=== PATIENT | female | born 1960 | race Caucasian/White ===

== ENCOUNTER → 2017-06-26 | Outpatient (CLI) | payer BC ==
--- NOTE | 2017-06-26 16:14 | CT ---
EXAMINATION TYPE: CT angio chest DATE OF EXAM: 06/26/2017 COMPARISON: NONE HISTORY: SOB, VAIBHAV CT DLP: 591.8 mGycm Automated exposure control for dose reduction was used. CONTRAST: CTA scan of the thorax is performed with IV Contrast, patient injected with 70 mL of Isovue 370, pulm onary embolism protocol. MIP images are created and reviewed. 3D reconstructed images are created o n an independent workstation and reviewed. FINDINGS: LUNGS: The lungs are remarkable for some minimal scarring right middle lobe, there is no concerning parenchymal mass or nodule identified. There is no pleural effusion or pneumothorax seen. The trac heobronchial tree is patent. AORTA: No additional significant abnormality is seen. MEDIASTINUM: There is satisfactory enhancement of the pulmonary artery and its branches, there is no CT evidence for pulmonary embolism. There are borderline 1 cm mediastinal lymph nodes. No hilar cecily opathy No pericardial effusion is seen. OTHER: There is a small hiatal hernia. Patient is post cholecystectomy. IMPRESSION: NO EVIDENT PULMONARY EMBOLISM. BORDERLINE LYMPH NODES IN THE CHEST, CONSIDER FOLLOW-UP INDICATED.
== END | disposition home or self-care (01) ==
LOC: RADCTMAIN 13:19
PROVIDERS: ATTEND Family Medicine
DX: R06.00 Dyspnea, unspecified (principal)
CPT/HCPCS: 82565; 84520; 71275; 36415; Q9967

== ENCOUNTER 2017-06-28 07:35 | Observation (INO) | payer BC ==
[2017-06-28] MEDS ORDERED: SODIUM CHLORIDE 0.9% 500 ML IV STA (08:04)
--- NOTE | 2017-06-28 08:07 | ED ---
General Adult HPI - General Chief complaint: Shortness of Breath Stated complaint: Difficulty Breathing Time Seen by Provider: 06/28/17 07:35 Source: patient, RN notes reviewed Mode of arrival: ambulatory Limitations: no limitations - History of Present Illness Initial comments: This a 56-year-old female presents emergency Department with a past medical history significant for high blood pressure. Patient states about 2 weeks ago she had an upper respiratory infection and it developed into a cough and on Sunday she started becoming short of breath. Patient states she saw her primary medical care doctor he thought maybe she had a pulmonary embolus and had a CAT scan that was negative. Patient states the shortness of breath continues. Patient states he was sitting and resting she feels mildly short of breath. Patient states exertion definitely makes it worse. Patient denies any chest pain or pressure. Patient denies any palpitations. Patient denies any calf pain patient denies any peripheral edema. Patient denies any back pain. Patient denies headache patient denies numbness weakness. Patient denies lightheadedness dizziness or near syncopal episode. Patient has no pain anywhere her main complaint is just the persistent shortness of breath. she was sent in by her primary medical care doctor to have her heart checked out. - Related Data Home Medications Medication Instructions Recorded Confirmed Atorvastatin Calcium [Lipitor] 20 mg PO PC-SUPPER 06/28/17 06/28/17 Cholecalciferol (Vitamin D3) 2,000 unit PO DAILY 06/28/17 06/28/17 [Vitamin D3] Irbesartan/Hydrochlorothiazide 1 tab PO DAILY 06/28/17 06/28/17 [Irbesartan-Hctz 300-12.5 mg Tb] predniSONE See Taper PO DIRECTED 06/28/17 06/28/17 Allergies Allergy/AdvReac Type Severity Reaction Status Date / Time No Known Allergies Allergy Verified 06/28/17 07:46 Review of Systems ROS Statement: Those systems with pertinent positive or pertinent negative responses have been documented in the HPI. ROS Other: All systems not noted in ROS Statement are negative. Past Medical History Past Medical History: Hyperlipidemia, Hypertension History of Any Multi-Drug Resistant Organisms: None Reported Past Surgical History: Cholecystectomy, Tubal Ligation Past Psychological History: No Psychological Hx Reported Smoking Status: Never smoker Past Alcohol Use History: Rare Past Drug Use History: None Reported - Past Family History Mother Family Medical History: Cancer, Hyperlipidemia, Hypertension Additional Family Medical History / Comment(s): Mother of small cell cancer at the age of 75yrs. Pt does not know where cancer was located. Father History Unknown: Yes General Exam - General Exam Comments Initial Comments: GENERAL: Patient is well-developed and well-nourished. Patient is nontoxic and well- hydrated and is in no acute distress. ENT: Neck is soft and supple. No significant lymphadenopathy is noted. Oropharynx is clear. Moist mucous membranes. Neck has full range of motion without eliciting any pain. EYES: The sclera were anicteric and conjunctiva were pink and moist. Extraocular movements were intact and pupils were equal round and reactive to light. Eyelids were unremarkable. PULMONARY: Unlabored respirations. Good breath sounds bilaterally. No audible rales rhonchi or wheezing was noted. CARDIOVASCULAR: There is a regular rate and rhythm without any murmurs gallops or rubs. ABDOMEN: Soft and nontender with normal bowel sounds. No palpable organomegaly was noted. There is no palpable pulsatile mass. SKIN: Skin is clear with no lesions or rashes and otherwise unremarkable. NEUROLOGIC: Patient is alert and oriented x3. Cranial nerves II through XII are grossly intact. Motor and sensory are also intact. Normal speech, volume and content. Symmetrical smile. MUSCULOSKELETAL: Normal extremities with adequate strength and full range of motion. No edema tenderness and no calf tenderness LYMPHATICS: No significant lymphadenopathy is noted PSYCHIATRIC: Normal psychiatric evaluation. Normal interpersonal interactions appears functionally intact in deals appropriately with others. No signs of depression. No signs of anxiety. Limitations: no limitations Course Vital Signs 06/28/17 06/28/17 06/28/17 07:37 08:26 10:57 Temperature 98.0 F 98 F Pulse Rate 64 54 L 52 L Respiratory 20 18 18 Rate Blood Pressure 122/59 120/67 124/60 O2 Sat by Pulse 96 98 97 Oximetry Medical Decision Making - Medical Decision Making EKG shows sinus bradycardia 50 bpm PA interval 160 QRS is 74 Q-T intervals 426 QTC is 418. Patient's EKG shows no ST segment elevation or depression or T- wave abnormalities noted. Chest x-ray showed no acute abnormality. I spoke with Dr. Rayo he agreed to admit the patient admitted the patient I consult the cardiology - Lab Data Result diagrams: 06/28/17 08:30 06/28/17 08:30 Lab Results 06/28/17 06/28/17 06/28/17 Range/Units 08:30 08:30 08:30 WBC 4.1 (3.8-10.6) k/uL RBC 5.16 (3.80-5.40) m/uL Hgb 15.3 (11.4-16.0) gm/dL Hct 43.9 (34.0-46.0) % MCV 85.1 (80.0-100.0) fL MCH 29.8 (25.0-35.0) pg MCHC 35.0 (31.0-37.0) g/dL RDW 12.9 (11.5-15.5) % Plt Count 298 (150-450) k/uL Neutrophils % (Manual) 78 % Lymphocytes % (Manual) 20 % Monocytes % (Manual) 2 % Neutrophils # (Manual) 3.20 (1.3-7.7) k/uL Lymphocytes # (Manual) 0.82 L (1.0-4.8) k/uL Monocytes # (Manual) 0.08 (0-1.0) k/uL Nucleated RBCs 0 (0-0) /100 WBC Manual Slide Review Performed RBC Morphology Normal PT (9.0-12.0) sec INR (<1.2) APTT (22.0-30.0) sec Sodium 139 (137-145) mmol/L Potassium 3.7 (3.5-5.1) mmol/L Chloride 99 (98-107) mmol/L Carbon Dioxide 25 (22-30) mmol/L Anion Gap 15 mmol/L BUN 15 (7-17) mg/dL Creatinine 0.69 (0.52-1.04) mg/dL Est GFR (CKD-EPI)AfAm >90 (>60 ml/min/1.73 sqM) Est GFR (CKD-EPI)NonAf >90 (>60 ml/min/1.73 sqM) Glucose 130 H (74-99) mg/dL Calcium 9.4 (8.4-10.2) mg/dL Magnesium 2.0 (1.6-2.3) mg/dL Total Bilirubin 0.8 (0.2-1.3) mg/dL AST 28 (14-36) U/L ALT 35 (9-52) U/L Alkaline Phosphatase 79 (38-126) U/L Total Creatine Kinase 102 (30-135) U/L CK-MB (CK-2) 0.6 (0.0-2.4) ng/mL CK-MB (CK-2) Rel Index 0.6 Troponin I <0.012 (0.000-0.034) ng/mL NT-Pro-B Natriuret Pep pg/mL Total Protein 7.2 (6.3-8.2) g/dL Albumin 4.2 (3.5-5.0) g/dL Triglycerides (<150) mg/dL Cholesterol (<200) mg/dL LDL Cholesterol, Calc (0-99) mg/dL HDL Cholesterol (40-60) mg/dL 06/28/17 06/28/17 06/28/17 Range/Units 08:30 08:30 08:30 WBC (3.8-10.6) k/uL RBC (3.80-5.40) m/uL Hgb (11.4-16.0) gm/dL Hct (34.0-46.0) % MCV (80.0-100.0) fL MCH (25.0-35.0) pg MCHC (31.0-37.0) g/dL RDW (11.5-15.5) % Plt Count (150-450) k/uL Neutrophils % (Manual) % Lymphocytes % (Manual) % Monocytes % (Manual) % Neutrophils # (Manual) (1.3-7.7) k/uL Lymphocytes # (Manual) (1.0-4.8) k/uL Monocytes # (Manual) (0-1.0) k/uL Nucleated RBCs (0-0) /100 WBC Manual Slide Review RBC Morphology PT 9.7 (9.0-12.0) sec INR 1.0 (<1.2) APTT 22.3 (22.0-30.0) sec Sodium (137-145) mmol/L Potassium (3.5-5.1) mmol/L Chloride (98-107) mmol/L Carbon Dioxide (22-30) mmol/L Anion Gap mmol/L BUN (7-17) mg/dL Creatinine (0.52-1.04) mg/dL Est GFR (CKD-EPI)AfAm (>60 ml/min/1.73 sqM) Est GFR (CKD-EPI)NonAf (>60 ml/min/1.73 sqM) Glucose (74-99) mg/dL Calcium (8.4-10.2) mg/dL Magnesium (1.6-2.3) mg/dL Total Bilirubin (0.2-1.3) mg/dL AST (14-36) U/L ALT (9-52) U/L Alkaline Phosphatase (38-126) U/L Total Creatine Kinase (30-135) U/L CK-MB (CK-2) (0.0-2.4) ng/mL CK-MB (CK-2) Rel Index Troponin I (0.000-0.034) ng/mL NT-Pro-B Natriuret Pep 156 pg/mL Total Protein (6.3-8.2) g/dL Albumin (3.5-5.0) g/dL Triglycerides 124 (<150) mg/dL Cholesterol 150 (<200) mg/dL LDL Cholesterol, Calc 93 (0-99) mg/dL HDL Cholesterol 32 L (40-60) mg/dL Disposition Clinical Impression: Dyspnea on exertion Disposition: ADMITTED IP TO THIS HOSP Is patient prescribed a controlled substance at d/c from ED?: No Time of Disposition: 10:41
[2017-06-28 08:57] LABS: Partial Thromboplastin Time 22.3 sec (22.0-30.0); Prothrombin Time 9.7 sec (9.0-12.0)
[2017-06-28 08:58] LABS: HCT 43.9 % (34.0-46.0); HGB 15.3 gm/dL (11.4-16.0); MCH 29.8 pg (25.0-35.0); MCV 85.1 fL (80.0-100.0); Mean Platelet Volume 7.1; Platelet Count 298 k/uL (150-450); RBC 5.16 m/uL (3.80-5.40); RDW 12.9 % (11.5-15.5); WBC 4.1 k/uL (3.8-10.6)
[2017-06-28 09:01] LABS: ALT 35 U/L (9-52); AST 28 U/L (14-36); Albumin 4.2 g/dL (3.5-5.0); Alkaline Phosphatase 79 U/L (38-126); Anion Gap 15 mmol/L; Blood Urea Nitrogen 15 mg/dL (7-17); Calcium 9.4 mg/dL (8.4-10.2); Carbon Dioxide 25 mmol/L (22-30); Chloride 99 mmol/L (98-107); Glucose 130 mg/dL (74-99); Potassium 3.7 mmol/L (3.5-5.1); Sodium 139 mmol/L (137-145); Total Bilirubin 0.8 mg/dL (0.2-1.3); Total Protein 7.2 g/dL (6.3-8.2)
[2017-06-28 09:19] LABS: Creatine Kinase 102 U/L (30-135)
[2017-06-28 09:31] LABS: Creatine Kinase MB 0.6 ng/mL (0.0-2.4); Troponin I <0.012 ng/mL (0.000-0.034)
[2017-06-28 09:32] LABS: Lymphocytes # (M) 0.82 k/uL (1.0-4.8); Monocytes # (M) 0.08 k/uL (0-1.0); Neutrophils % (M) 78 %; Nucleated Red Blood Cells 0 /100 WBC (0-0); Total Cells Counted 100
--- NOTE | 2017-06-28 09:32 | XR ---
EXAMINATION TYPE: XR chest 2V DATE OF EXAM: 06/28/2017 COMPARISON: CT angiogram 06/26/2017 HISTORY: Dyspnea TECHNIQUE: Frontal and lateral views of the chest are obtained. FINDINGS: Patient is rotated. There are overlying cardiac leads. Surgical clips are present in the ri ght upper quadrant. There is no focal air space opacity, pleural effusion, or pneumothorax seen. The cardiac silhouette size is within normal limits. The osseous structures are intact. IMPRESSION: No acute cardiopulmonary process.
[2017-06-28] MEDS ORDERED: NITROGLYCERIN SL TABS 0.4 MG TAB SUBLINGUAL PRN (10:42)
[2017-06-28 13:39] VITALS: BMI 47.9
--- NOTE | 2017-06-28 14:48 | P.CRDCN ---
History of Present Illness Consult date: 06/28/17 History of present illness: Mrs. Lenz is a pleasant 56-year-old female past medical history significant for hypertension, hyperlipidemia and morbid obesity. She denies history of coronary artery disease and has never seen a finish off operator for any reason. We have been asked to see her in consultation for chest pain and shortness of breath. She states she has been struggling with an upper respiratory infection over the previous 2 weeks with cough, congestion, shortness of breath and drainage. She saw her PCP who ordered a CT of her chest to rule out PE which was negative. She was placed on antibiotics as well as a prednisone taper. Her cough and congestion have subsided but the shortness of breath has persisted. It is evident even at rest but worse with exertion. She denies any symptoms of specific chest pain, arm pain, neck/back or jaw pain. Denies palpitations, dizziness, nausea, vomiting or diaphoresis. She also denies PND or orthopnea. EKG reveals sinus bradycardia heart rate 58 with non-specific abnormalities inferiorly with no acute ST or T-wave abnormalities. Chest xray is negative for an acute cardiopulmonary process. Laboratory data reviewed, hemoglobin 15.3, platelets 298, sodium 139, potassium 3.7, magnesium 2.0, cardiac enzymes negative 1, proBNP 156. Current cardiac medications include Cardizem/HCTZ 300/12.5 mg daily and atorvastatin [address] angiography was ordered last week was reviewed reveals no evidence of pulmonary embolism with borderline lymph nodes in the chest, follow-up recommended. As well as a small hiatal hernia. Review of Systems At the time of my exam: CONSTITUTIONAL: Denies fever. Denies chills. EYES: Denies blurred vision. Denies vision changes. Denies eye pain. EARS, NOSE, MOUTH & THROAT: Denies headache. Denies sore throat. Denies ear pain. CARDIOVASCULAR: Denies chest pain. Complains of shortness of breath. Denies orthopnea. Denies PND. Denies palpitations. RESPIRATORY: Denies cough. GASTROINTESTINAL: Denies abdominal pain. Denies diarrhea. Denies constipation. Denies nausea. Denies vomiting. MUSCULOSKELETAL: Denies myalgias. INTEGUMENTARY: Denies pruitis. Denies rash. NEUROLOGIC: Denies numbness. Denies tingling. Denies weakness. PSYCHIATRIC: Denies anxiety. Denies depression. ENDOCRINE: Denies fatigue. Denies weight change. Denies polydipsia. Denies polyurina. GENITOURINARY: Denies burning, hematuria or urgency with micturation. HEMATOLOGIC: Denies history of anemia. Denies bleeding. Past Medical History Past Medical History: Hyperlipidemia, Hypertension History of Any Multi-Drug Resistant Organisms: None Reported Past Surgical History: Cholecystectomy, Tubal Ligation Past Anesthesia/Blood Transfusion Reactions: No Reported Reaction Smoking Status: Never smoker - Past Family History Mother Family Medical History: Cancer, Hyperlipidemia, Hypertension Additional Family Medical History / Comment(s): Mother of small cell cancer at the age of 75yrs. Pt does not know where cancer was located. Father History Unknown: Yes Medications and Allergies Home Medications Medication Instructions Recorded Confirmed Type Atorvastatin Calcium [Lipitor] 20 mg PO PC-SUPPER 06/28/17 06/28/17 History Cholecalciferol (Vitamin D3) 2,000 unit PO DAILY 06/28/17 06/28/17 History [Vitamin D3] Irbesartan/Hydrochlorothiazide 1 tab PO DAILY 06/28/17 06/28/17 History [Irbesartan-Hctz 300-12.5 mg Tb] predniSONE See Taper PO DIRECTED 06/28/17 06/28/17 History Allergies Allergy/AdvReac Type Severity Reaction Status Date / Time No Known Allergies Allergy Verified 06/28/17 07:46 Physical Exam Vitals: Vital Signs Temp Pulse Pulse Resp BP BP Pulse Ox 06/28/17 12:38 98 06/28/17 11:05 97.6 F 51 L 16 129/60 99 06/28/17 10:57 98 F 52 L 18 124/60 97 06/28/17 08:26 54 L 18 120/67 98 06/28/17 07:37 98.0 F 64 20 122/59 96 Intake and Output 06/27/17 06/28/17 06/28/17 22:59 06:59 14:59 Other: Voiding Method Toilet # Voids 1 Weight 126.6 kg Blood pressure 129/68 heart rate 51 afebrile maintaining oxygen saturation on nasal cannula 2 L GENERAL: This is a 56-year-old occasion female in no apparent distress at the time of my examination. Morbidly obese. HEENT: Head is atraumatic, normocephalic. Pupils are equal, round. Sclerae anicteric. Conjunctivae are clear. Mucous membranes of the mouth are moist. Neck is supple. There is no jugular venous distention. No carotid bruit is heard. LUNGS: Clear to auscultation no wheezes, rales or rhonchi. No chest wall tenderness is noted on palpation or with deep breathing. HEART: Regular rate and rhythm without murmurs, rubs or gallops. S1 and S2 heard. ABDOMEN: Soft, nontender. Bowel sounds are heard. No organomegaly noted. EXTREMITIES: No evidence of peripheral edema and no calf tenderness noted. VASCULAR: Radial and dorsalis pedis pulses palpated, no evidence of clubbing. NEUROLOGIC: Patient is awake, alert and oriented x3. Results 06/28/17 08:30 06/28/17 08:30 Cardiac Enzymes 06/28/17 06/28/17 Range/Units 08:30 08:30 AST 28 (14-36) U/L CK-MB (CK-2) 0.6 (0.0-2.4) ng/mL Troponin I <0.012 (0.000-0.034) ng/mL Coagulation 06/28/17 Range/Units 08:30 PT 9.7 (9.0-12.0) sec APTT 22.3 (22.0-30.0) sec CBC 06/28/17 Range/Units 08:30 WBC 4.1 (3.8-10.6) k/uL RBC 5.16 (3.80-5.40) m/uL Hgb 15.3 (11.4-16.0) gm/dL Hct 43.9 (34.0-46.0) % Plt Count 298 (150-450) k/uL Comprehensive Metabolic Panel 06/28/17 Range/Units 08:30 Sodium 139 (137-145) mmol/L Potassium 3.7 (3.5-5.1) mmol/L Chloride 99 (98-107) mmol/L Carbon Dioxide 25 (22-30) mmol/L BUN 15 (7-17) mg/dL Creatinine 0.69 (0.52-1.04) mg/dL Glucose 130 H (74-99) mg/dL Calcium 9.4 (8.4-10.2) mg/dL AST 28 (14-36) U/L ALT 35 (9-52) U/L Alkaline Phosphatase 79 (38-126) U/L Total Protein 7.2 (6.3-8.2) g/dL Albumin 4.2 (3.5-5.0) g/dL Current Medications Generic Name Dose Route Start Last Admin Trade Name Freq PRN Reason Stop Dose Admin Aspirin 325 mg 06/29/17 09:00 Aspirin PO DAILY [facility] Atorvastatin Calcium 20 mg 06/28/17 18:30 Lipitor PO PC-SUPPER FARHAN Hydrochlorothiazide 12.5 mg 06/29/17 09:00 Hydrodiuril PO DAILY [facility] Losartan Potassium 100 mg 06/29/17 09:00 Cozaar PO DAILY FARHAN Nitroglycerin 0.4 mg 06/28/17 10:42 Nitrostat SUBLINGUAL Q5M PRN Chest Pain Intake and Output 06/27/17 06/28/17 06/28/17 22:59 06:59 14:59 Other: Voiding Method Toilet # Voids 1 Weight 126.6 kg Patient Weight 06/29/17 06:59 Weight 126.6 kg 06/28/17 08:30 06/28/17 08:30 Assessment and Plan Assessment: ASSESSMENT 1. Shortness of breath, may be an atypical presentation of acute coronary syndrome. 2. Hypertension, controlled 3. Hyperlipidemia on atorvastatin 4. Morbid obesity PLAN Continue to obtain serial cardiac enzymes to rule out an acute coronary event. Check lipid panel. Obtain 2D echocardiogram and doppler study to assess cardiac structure and function. Repeat EKG in the morning and PRN if chest pain or acute shortness of breath. Change aspirin to 81 mg daily from 325 mg. Continue with losartan, hydrochlorothiazide and atorvastatin as was previously ordered. If cardiac enzymes are negative x3 we will perform an exercise stress echocardiogram tomorrow morning. Ongoing telemetry monitoring. Further recommendations to follow, thank you kindly for this consultation. The above impression and plan of care have been discussed and directed by the signing physician. Nakita Shaffer, nurse practitioner, acting as scribe for signing physician.
[2017-06-28 16:02] LABS: Creatine Kinase 70 U/L (30-135)
[2017-06-28 16:16] LABS: Creatine Kinase MB 0.4 ng/mL (0.0-2.4); Troponin I <0.012 ng/mL (0.000-0.034)
[2017-06-28] MEDS ORDERED: RX INFO: IV CONTRAST WAS GIVEN 1 EACH MISC MISCELLANE PRN (17:03)
--- NOTE | 2017-06-28 17:31 | HP ---
HISTORY AND PHYSICAL DATE OF SERVICE: June 28, 2017. PRESENT COMPLAINT: Short of breath. HISTORY OF PRESENTING COMPLAINT: This is a very pleasant 56 -year-old patient of Dr. Oro. Chronic stable medical conditions include hypertension, hyperlipidemia. The patient about a week she described what as a stomach flu started off with fever, headache, dizziness, cough. Initial symptoms settled down, but the patient had a persistent cough up until even yesterday. Still noted that was getting easily short-winded. Did see Dr. Oro, was given prednisone and some bronchodilators. did feel better. Had some achiness in the chest. She called Dr. Oro again. He directed her towards the ER. The patient denies any chest pressure per se, rather active otherwise. Still got a lingering cough. Not any wheezing. No fever currently. REVIEW OF SYSTEMS: Constitutional: Tired. HEENT as above. Respiratory as above. Cardiovascular none. Gastrointestinal none. Genitourinary none. Musculoskeletal: None. Dermatological, hematologic, lymphatic none. Psychiatry none. Neurological none. PAST MEDICAL HISTORY: Hypertension and hyperlipidemia. PAST SURGICAL HISTORY: Cholecystectomy, tubal ligation. SOCIAL HISTORY: Does not smoke. Alcohol rarely. Lives by herself. Retired from [employer]. FAMILY HISTORY: Mother from small-cell lung cancer and hypertension, hyperlipidemia. HOME MEDICATIONS: 1. Prednisone taper. 2. hydrochlorothiazide 300/12.5 one tab p.o. daily. 3. Vitamin D3 2000 units p.o. daily. 4. Lipitor 20 mg with supper. ALLERGIES: None. EXAMINATION: Temp 97.5, pulse 71, respiratory 16, blood pressure 129/60, pulse ox 99% on 2 L, general appearance: Well built, BMI 47.9. Sitting up comfortable. Eyes pupils are equal. Conjunctivae normal. HEENT: External appearance of nose and ears normal. Oral cavity normal. Neck JVD not raised. Mass not palpable. Respiratory effort normal. Lungs fair entry. Cardiovascular: First and second sounds normal. No edema. ABDOMEN: Soft, nontender. Liver and spleen not palpable. Lymphatic: No lymph nodes palpable in the neck or axilla. PSYCHIATRY: Alert and oriented x3. Mood and affect normal. Neurological: Pupils equal. Cranial nerves grossly intact. Power and sensation grossly intact. INVESTIGATIONS: White count 4.1, hemoglobin 15.3, potassium 3.7. Troponin x2 negative. ProBNP 156. Chest x-ray unremarkable. EKG some nonspecific changes. ASSESSMENT: 1. This is a patient who presents with a 1 week ago of what appeared to be a viral bronchitis. Symptoms actually have settled down, had and a persistent cough. Often times these coughs can linger for quite a while. The patient is still short of breath. Need to rule out a cardiac cause. 2. Rule out a pulmonary embolism. 3. Morbid obesity BMI 47.9. 4. Essential hypertension. 5. Hyperlipidemia. PLAN: Cardiology was consulted. Going to do a stress test on the patient. In the meantime, we will go ahead and order chest CTA to rule out a pulmonary embolism. We will also have the patient see a dietitian for weight loss measures. Copy Dr. Oro. HEATHER / CELINE: [id number] /
[2017-06-28] MEDS ORDERED: ATORVASTATIN 20 MG TAB PO SCH (18:30)
[2017-06-28 21:46] LABS: Creatine Kinase 70 U/L (30-135)
[2017-06-28 21:59] LABS: Creatine Kinase MB 0.5 ng/mL (0.0-2.4); Troponin I <0.012 ng/mL (0.000-0.034)
[2017-06-29 02:50] LABS: Cholesterol 150 mg/dL (<200); HDL Cholesterol 32 mg/dL (40-60); LDL Cholesterol,Calculated 93 mg/dL (0-99); Triglycerides 124 mg/dL (<150)
[2017-06-29 08:17] VITALS: PULSE 58; RESP 18
--- NOTE | 2017-06-29 08:26 | ECHOF ---
Referral Reason:Dyspnea on exertion MEASUREMENTS -------- HEIGHT: 162.6 cm WEIGHT: 124.7 kg BP: 120/67 RVIDd: 3.1 cm (< 3.3) IVSd: 1.1 cm (0.6 - 1.1) LVIDd: 4.2 cm (3.9 - 5.3) LVPWd: 1.0 cm (0.6 - 1.1) IVSs: 1.4 cm LVIDs: 2.1 cm LVPWs: 1.3 cm LA Diam: 4.3 cm (2.7 - 3.8) LAESV Index (A-L): 18.91 ml/m Ao Diam: 3.5 cm (2.0 - 3.7) AV Cusp: 1.7 cm (1.5 - 2.6) LA Diam: 4.2 cm (2.7 - 3.8) MV E Antoine: 1.05 m/s MV DecT: 232 ms MV A Antoine: 0.73 m/s MV E/A Ratio: 1.45 RAP: 5.00 mmHg RVSP: 9.51 mmHg FINDINGS -------- Resting bradycardia (HR<60bpm). This was a technically difficult study with suboptimal views. The left ventricular size is normal. There is borderline concentric left ventricular hypertrophy. Overall left ventricular systolic function is normal with, an EF between 55 - 60 %. The right ventricle is mildly enlarged. Normal LA size by volume 22+/-6 ml/m2. The right atrium was not well visualized. 3ml of Lumason was utilized for enhancement of images. Aortic valve is trileaflet and is mildly thickened. There is no evidence of aortic regurgitation. There is no evidence of aortic stenosis. The mitral valve leaflets are mildly thickened. There is trace to mild mitral regurgitation. Trace tricuspid regurgitation present. Right ventricular systolic pressure is normal at < 35 mmHg. There is no evidence of pulmonary hypertension. The pulmonic valve was not well visualized. The aortic root size is normal. Normal inferior vena cava with normal inspiratory collapse consistent with estimated right atrial pre ssure of 5 mmHg. There is no pericardial effusion. CONCLUSIONS -------- 1. Resting bradycardia (HR<60bpm). 2. This was a technically difficult study with suboptimal views. 3. The left ventricular size is normal. 4. There is borderline concentric left ventricular hypertrophy. 5. Overall left ventricular systolic function is normal with, an EF between 55 - 60 %. 6. The right ventricle is mildly enlarged. 7. Normal LA size by volume 22+/-6 ml/m2. 8. The right atrium was not well visualized. 9. 3ml of Lumason was utilized for enhancement of images. 10. Aortic valve is trileaflet and is mildly thickened. 11. The mitral valve leaflets are mildly thickened. 12. There is trace to mild mitral regurgitation. 13. Trace tricuspid regurgitation present. 14. Right ventricular systolic pressure is normal at < 35 mmHg. 15. There is no evidence of pulmonary hypertension. 16. The pulmonic valve was not well visualized. 17. The aortic root size is normal. 18. There is no pericardial effusion. DISTILLERY SUPERVISOR: David Boone RDCS
[2017-06-29] MEDS ORDERED: HYDROCHLOROTHIAZIDE 12.5 MG CAP PO SCH (09:00)
[2017-06-29] MEDS ORDERED: LOSARTAN 50 MG TAB PO SCH (09:00)
[2017-06-29] MEDS ORDERED: ASPIRIN 325 MG TAB PO SCH (09:00)
[2017-06-29] MEDS ORDERED: ASPIRIN 81 MG PO SCH (09:00)
[2017-06-29] MEDS ORDERED: METOPROLOL SUCCINATE (ER) 25 MG TAB.ER.24H PO SCH (09:45)
[2017-06-29] MEDS ORDERED: ASPIRIN 81 MG PO STA (10:05)
--- NOTE | 2017-06-29 10:11 | ECHOS ---
STRESS ECHOCARDIOGRAM DATE OF SERVICE: 06/29/2017 INDICATIONS: Shortness of breath. MEDICATIONS: BASELINE HEART RATE: 53 BASELINE BLOOD PRESSURE: 115/77 MAXIMUM HEART RATE: 137 MAXIMUM BLOOD PRESSURE: 196/78 85% MPHR: 138 100% MPHR: 162 METS: 9 MAXIMUM STAGE REACHED: II TOTAL EXERCISE TIME: 7-1/2 minutes CLINICAL INFORMATION: Baseline EKG shows sinus rhythm, normal axis, normal intervals. Patient exercised on Zay protocol for a total of 7-1/2 minutes achieving 9 METS, 85% of predicted maximal heart rate without chest pain. The test was stopped secondary to fatigue and tiredness. No significant ST-segment depression was noted. However, patient developed atrial fibrillation at the end of the study and remained in atrial fibrillation at the end of the study. Baseline echo shows normal left ventricular size, wall motion, systolic function. Postexercise, there is normal hyperdynamic response of all segments of myocardium noted. CONCLUSIONS: 1. Negative stress test by EKG criteria. 2. Exercise-induced atrial fibrillation. 3. Negative stress echo. MMODL / IJN: [id number] /
--- NOTE | 2017-06-29 10:31 | P.PN ---
Progress Note - Text Progress Note Date: 06/29/17 During exercise stress test she developed atrial fibrillation that persisted into recovery. She was given a dose of toprol 25 mg and subsequently converted back to sinus mechanism after about 60 minutes. Stable from discharge on toprol 25 mg daily and aspirin 81 mg daily. This has been discussed with the patient. Follow up with Dr. Hughes in 2 weeks.
--- NOTE | 2017-06-29 10:52 | P.PN ---
Subjective Progress Note Date: 06/29/17 Mrs. Lenz is seen this morning in follow-up. Cardiac enzymes are negative x3 and telemetry tracings have been unremarkable. LDL 93, HDL 32. Ongoing mild shortness of breath with no chest pain. Echocardiogram performed revealed preserved LV function with no valvular heart disease. Blood pressure 145/81 heart rate 58. Objective - Vital Signs Vital signs: Vital Signs Temp 97.5 F L 06/29/17 07:15 Pulse 58 L 06/29/17 07:15 Resp 18 06/29/17 07:15 BP 145/81 06/29/17 07:15 Pulse Ox 96 06/29/17 07:15 Intake & Output 06/28/17 06/29/17 06/29/17 18:59 06:59 18:59 Weight 126.6 kg 126.552 kg Other: Voiding Method Toilet Toilet Toilet # Voids 1 1 - Exam GENERAL: Well-appearing, well-nourished and in no acute distress. Obese. NECK: Supple without JVD or thyromegaly. LUNGS: Breath sounds clear to auscultation bilaterally. Respiration equal and unlabored. No wheezes, rales or rhonchi. HEART: Regular rate and rhythm without murmurs, rubs or gallops. S1 and S2 heard. EXTREMITIES: Normal range of motion, no edema. No clubbing or cyanosis. Peripheral pulses intact and strong. - Labs CBC & Chem 7: 06/28/17 08:30 06/28/17 08:30 Labs: Abnormal Lab Results - Last 24 Hours (Table) 06/28/17 Range/Units 08:30 HDL Cholesterol 32 L (40-60) mg/dL Assessment and Plan Assessment: ASSESSMENT 1. Shortness of breath, may be an atypical presentation of acute coronary syndrome. 2. Hypertension, controlled 3. Hyperlipidemia on atorvastatin 4. Morbid obesity PLAN Proceed with stress echocardiogram to assess for stress induced cardiac ischemia. If this is normal she is stable from a cardiac perspective to follow-up with Dr. Hughes in 2-3 weeks. The above impression and plan of care have been discussed and directed by the signing physician. Nakita Shaffer, nurse practitioner, acting as scribe for signing physician.
[2017-06-29 11:47] VITALS: BP 117/73; TEMP 97.8
--- NOTE | 2017-06-29 21:14 | DS ---
DISCHARGE SUMMARY OF ADMISSION: June 28, 2017. DATE OF DISCHARGE: June 29, 2017. FINAL DIAGNOSES: 1. Acute viral bronchitis causing musculoskeletal chest pain. 2. Morbid obesity BMI 47.9. 3. Essential hypertension. 4. Hyperlipidemia. 5. Paroxysmal atrial fibrillation. HOSPITAL COURSE: This patient with recurrent upper respiratory tract infection, presented with some cough, some chest pain, did undergo stress echocardiogram that was negative. PE was ruled out the day prior in the ER. Care was discussed with the patient. During the course of stress echocardiogram, patient did have a short bout of atrial fibrillation for which beta louise was added. CONSULTATION: Dr. Martin Hughes from Cardiology. DISCHARGE MEDICATIONS: 1. Lipitor 20 mg with supper. 2. Vitamin D3 2000 units p.o. daily. 3. hydrochlorothiazide 300/12.5 one tab p.o. daily. 4. Prednisone taper. 5. Aspirin 81 mg p.o. daily. 6. Toprol-XL 25 mg p.o. daily. EXAM: Lungs are clear. Cardiovascular 1st and 2nd sounds normal. Follow up with Dr. Oro in 3 days, follow with Dr. Martin Hughes on July 10, 2017. Copy Dr. Oro. MMODL / IJN: [id number] /
[2017-06-30] MEDS ORDERED: ASPIRIN 325 MG TAB PO SCH (09:00)
== END 2017-06-29 13:20 | disposition home or self-care (01) ==
LOC: EC 07:35 → 3OBS 10:42
PROVIDERS: ADMIT Hospitalist; ATTEND Hospitalist
DX: J20.8 Acute bronchitis due to other specified organisms (principal); Z68.42 Body mass index [BMI] 45.0-49.9, adult; E66.01 Morbid (severe) obesity due to excess calories; I10 Essential (primary) hypertension; E78.5 Hyperlipidemia, unspecified; I48.0 Paroxysmal atrial fibrillation; Z79.899 Other long term (current) drug therapy; Z82.49 Family history of ischemic heart disease and other diseases of the circulatory system; Z90.49 Acquired absence of other specified parts of digestive tract; Z80.1 Family history of malignant neoplasm of trachea, bronchus and lung
CPT/HCPCS: 99285 ×2; 96360 ×2; 96361 ×2; 36415; 93005; 93306; 93351; 83880; 80061; 80053; 82550; 82553; 83735; 84484; 85025; 85610; 85730; 71046; G0378 ×2; Q9950 ×2

== ENCOUNTER → 2018-05-01 | Outpatient (CLI) | payer BC ==
--- NOTE | 2018-05-01 08:26 | CT ---
EXAMINATION TYPE: CT chest w con DATE OF EXAM: 05/01/2018 COMPARISON: 06/26/2017 HISTORY: Localized enlarged lymph nodes CT DLP: 782 mGycm. Automated Exposure Control for Dose Reduction was Utilized. TECHNIQUE: CT scan of the thorax is performed following with IV Contrast, patient injected with 100 ml mL of Isovue 300. FINDINGS: LUNGS: The lungs are grossly clear, there is no concerning parenchymal mass or nodule identified. Mul tifocal strand-like atelectasis is seen within the lingula and right middle lobe. There is no pleura l effusion or pneumothorax seen. The tracheobronchial tree is patent. MEDIASTINUM: The previously seen borderline mediastinal lymph nodes have decreased in size in the int erim and are no longer suspicious. For example a previous right paratracheal lymph node measured 1.2 cm in short axis on the prior and currently measures 9 mm. The previously seen subcarinal lymph node that measured 1.1 cm on the prior currently measures 6 mm. There are no greater than 1 cm hilar or me diastinal lymph nodes. No pericardial effusion is seen. OTHER: Hepatic parenchyma is diffusely hypoattenuated in comparison to that of the spleen, most comm only seen in hepatic steatosis. This finding limits evaluation for hepatic masses. No gross evidence of hepatic mass is seen. No intrahepatic biliary ductal dilatation. Gallbladder is surgically absent. Minimal multilevel degenerative changes of the spine are noted. A small hiatal hernia appreciated on the prior exam is less conspicuous on today's exam. IMPRESSION: 1. Decreased size of the previously seen borderline mediastinal lymph nodes. These are no longer enla rged or suspicious. 2. Hepatic steatosis.
== END | disposition home or self-care (01) ==
LOC: RADCTMAIN 07:08
PROVIDERS: ATTEND Family Medicine
DX: R59.0 Localized enlarged lymph nodes (principal)
CPT/HCPCS: 71260; Q9967

== ENCOUNTER 2023-06-05 14:07 | Observation (INO) | payer BC ==
[2023-06-05 14:52] VITALS: RESP 18
--- NOTE | 2023-06-05 15:12 | ED ---
General Adult HPI - General Chief complaint: Syncope Stated complaint: syncope,Hypotension Time Seen by Provider: 06/05/23 14:26 Source: patient, EMS, RN notes reviewed Mode of arrival: EMS Limitations: no limitations - History of Present Illness Initial comments: Patient is a pleasant 62-year-old female presenting to the emergency department with concern for syncopal episode. Episode occurred prior to arrival while at the doctor's appointment. Patient recently had her blood pressure medication change. Patient has been feeling lightheaded the last couple days. Patient was told her blood pressure was low in the office and patient did pass out. Patient denies any injury. Patient states she feels fine and has no complaints. Patient has been dealing with a rash for the past several weeks and has seen dermatology for this. - Related Data Home Medications Medication Instructions Recorded Confirmed Atorvastatin Calcium [Lipitor] 20 mg PO PC-SUPPER 06/28/17 06/28/17 Cholecalciferol (Vitamin D3) 2,000 unit PO DAILY 06/28/17 06/28/17 [Vitamin D3] Irbesartan/Hydrochlorothiazide 1 tab PO DAILY 06/28/17 06/28/17 [Irbesartan-Hctz 300-12.5 mg Tb] predniSONE See Taper PO DIRECTED 06/28/17 06/28/17 Previous Rx's Medication Instructions Recorded Aspirin 81 mg PO DAILY #1 chewable 06/29/17 Metoprolol Succinate (ER) [Toprol 25 mg PO DAILY #30 tab.er.24h 06/29/17 XL] Allergies Allergy/AdvReac Type Severity Reaction Status Date / Time No Known Allergies Allergy Verified 06/05/23 14:26 Review of Systems ROS Statement: Those systems with pertinent positive or pertinent negative responses have been documented in the HPI. ROS Other: All systems not noted in ROS Statement are negative. Constitutional: Denies: fever Eyes: Denies: eye pain ENT: Denies: ear pain Respiratory: Denies: cough, dyspnea Cardiovascular: Denies: chest pain Gastrointestinal: Reports: as per HPI. Denies: abdominal pain Genitourinary: Denies: dysuria Musculoskeletal: Denies: back pain Skin: Reports: as per HPI, rash Neurological: Denies: headache, weakness, confusion Past Medical History Past Medical History: Hyperlipidemia, Hypertension History of Any Multi-Drug Resistant Organisms: None Reported Past Surgical History: Cholecystectomy, Tubal Ligation Past Anesthesia/Blood Transfusion Reactions: No Reported Reaction Past Psychological History: No Psychological Hx Reported Past Alcohol Use History: Rare Past Drug Use History: None Reported - Past Family History Mother Family Medical History: Cancer, Hyperlipidemia, Hypertension Additional Family Medical History / Comment(s): Mother of small cell cancer at the age of 75yrs. Pt does not know where cancer was located. Father History Unknown: Yes General Exam Limitations: no limitations General appearance: alert, in no apparent distress Head exam: Present: normocephalic Eye exam: Present: normal appearance Neck exam: Present: normal inspection Respiratory exam: Present: normal lung sounds bilaterally Cardiovascular Exam: Present: bradycardia, normal heart sounds Expanded Peripheral pulses: 2+: Radial (R), Radial (L), Dorsalis Pedis (R), Dorsalis Pedis (L) GI/Abdominal exam: Present: soft. Absent: tenderness, pulsatile mass Extremities exam: Present: normal inspection. Absent: pedal edema, calf tenderness Neurological exam: Present: alert, CN II-XII intact. Absent: motor sensory deficit Expanded Neurological exam: Present: protecting the airway Speech: Present: fluid speech Cranial nerves: EOM's Intact: Normal Sensory exam: Upper Extremity Light Touch: Normal, Lower Extremity Light Touch: Normal Motor strength exam: RUE: 5, LUE: 5, RLE: 5, LLE: 5 Eye Response: (4) open spontaneously Motor Response: (6) obeys commands Verbal Response: (5) oriented Psychiatric exam: Present: normal affect, normal mood Skin exam: Present: normal color Course Vital Signs 06/05/23 06/05/23 14:20 14:23 Temperature 96.1 F L 96.1 F L Pulse Rate 56 L 56 L Respiratory 16 18 Rate Blood Pressure 113/70 113/70 O2 Sat by Pulse 100 100 Oximetry EKG Findings - EKG Results: EKG: interpreted by ERMD (Low QRS voltage), sinus rhythm, normal axis, normal ST/T EKG shows: bradycardia Medical Decision Making - Medical Decision Making Was pt. sent in by a medical professional or institution (, PA, PASSENGER SOLICITOR, urgent care, hospital, or [place] health care facility...) When possible be specific @ -Patient was sent in by Dr. Oro Did you speak to anyone other than the patient for history (EMS, parent, family, police, friend...)? What history was obtained from this source @ -No Did you review nursing and triage notes (agree or disagree)? Why? @ -I reviewed and agree with nursing and triage notes Were old charts reviewed (outside hosp., previous admission, EMS record, old EKG, old radiological studies, urgent care reports/EKG's, [place] health care facility records)? Report findings @ -No old charts were reviewed Differential Diagnosis (chest pain, altered mental status, abdominal pain women, abdominal pain men, vaginal bleeding, weakness, fever, dyspnea, syncope, headache, dizziness, GI bleed, back pain, seizure, CVA, palpatations, mental health, musculoskeletal)? @ -Differential Syncope: Valvular disease, hypertrophic cardiomyopathy, pulmonary embolism, tamponade, tachycardia, bradycardia, ND, hypovolemia, hemorrhage, dissection, anemia, intracranial hemorrhage, seizure, hypoglycemia, carbon monoxide poisoning, this is not meant to be an all-inclusive list. EKG interpreted by me (3pts min.). @ -As above X-rays interpreted by me (1pt min.). @ -Chest x-ray shows right lower lobe infiltrate CT interpreted by me (1pt min.). @ -None done U/S interpreted by me (1pt. min.). @ -None done What testing was considered but not performed or refused? (CT, X-rays, U/S, labs)? Why? @ -CT scan will be added secondary to elevated D-dimer What meds were considered but not given or refused? Why? @ -None Did you discuss the management of the patient with other professionals (professionals i.e. , PA, PASSENGER SOLICITOR, lab, RT, psych nurse, social sciences professor, glue sprayer, teacher, chief accounting officer, case management manager)? Give summary @ -Case was discussed with Dr. Paniagua, who will admit covering for Dr. Oro Was smoking cessation discussed for >3mins.? @ -No Was critical care preformed (if so, how long)? @ -No Were there social determinants of health that impacted care today? How? (Homelessness, low income, unemployed, alcoholism, drug addiction, transportation, low edu. Level, literacy, decrease access to med. care, senior care, rehab)? @ -No Was there de-escalation of care discussed even if they declined (Discuss DNR or withdrawal of care, Hospice)? DNR status @ -No What co-morbidities impacted this encounter? (DM, HTN, Smoking, COPD, CAD, Cancer, CVA, ARF, Chemo, Hep., AIDS, mental health diagnosis, sleep apnea, morbid obesity)? @ -None Was patient admitted / discharged? Hospital course, mention meds given and route , prescriptions, significant lab abnormalities, going to OR and other pertinent info. @ -Patient reevaluated and resting comfortably in bed. Patient and family updated on results and plan. Patient will be admitted. Patient has elevated white blood cell count with concern for pneumonia on chest x-ray. Blood culture and lactic acid and IV antibiotics will be ordered. CT scan will be ordered se condary to elevated D-dimer. Admission orders written. Undiagnosed new problem with uncertain prognosis? @ -No Drug Therapy requiring intensive monitoring for toxicity (Heparin, Nitro, Insulin, Cardizem)? @ -No Were any procedures done? @ -No Diagnosis/symptom? @ -Pneumonia Acute, or Chronic, or Acute on Chronic? @ -Acute Uncomplicated (without systemic symptoms) or Complicated (systemic symptoms)? @ -Complicated with hypotensive and syncopal episode Side effects of treatment? @ -No Exacerbation, Progression, or Severe Exacerbation? @ -No Poses a threat to life or bodily function? How? (Chest pain, USA, ND, pneumonia, PE, COPD, DKA, ARF, appy, cholecystitis, CVA, Diverticulitis, Homicidal, Suicidal, threat to staff... and all critical care pts) @ -No - Lab Data Result diagrams: 06/05/23 15:14 06/05/23 15:14 Lab Results 06/05/23 06/05/23 06/05/23 Range/Units 15:14 15:14 15:14 WBC 17.0 H (3.8-10.6) k/uL RBC 4.75 (3.80-5.40) m/uL Hgb 14.9 (11.4-16.0) gm/dL Hct 44.8 (34.0-46.0) % MCV 94.3 (80.0-100.0) fL MCH 31.5 (25.0-35.0) pg MCHC 33.4 (31.0-37.0) g/dL RDW 13.3 (11.5-15.5) % Plt Count 420 (150-450) k/uL MPV 8.1 Neutrophils % 76 % Lymphocytes % 8 % Monocytes % 7 % Eosinophils % 7 % Basophils % 1 % Neutrophils # 12.9 H (1.3-7.7) k/uL Lymphocytes # 1.4 (1.0-4.8) k/uL Monocytes # 1.1 H (0-1.0) k/uL Eosinophils # 1.1 H (0-0.7) k/uL Basophils # 0.1 (0-0.2) k/uL PT 10.6 (10.0-12.5) sec INR 1.0 (<1.2) APTT 20.7 L (22.0-30.0) sec D-Dimer 9.13 H (<0.60) mg/L FEU Sodium 132 L (137-145) mmol/L Potassium 4.6 (3.5-5.1) mmol/L Chloride 105 (98-107) mmol/L Carbon Dioxide 19 L (22-30) mmol/L Anion Gap 8 mmol/L BUN 14 (7-17) mg/dL Creatinine 0.72 (0.52-1.04) mg/dL Est GFR (CKD-EPI)AfAm >90 (>60 ml/min/1.73 sqM) Est GFR (CKD-EPI)NonAf 90 (>60 ml/min/1.73 sqM) Glucose 140 H (74-99) mg/dL Calcium 8.6 (8.4-10.2) mg/dL Magnesium 1.7 (1.6-2.3) mg/dL Total Bilirubin 1.1 (0.2-1.3) mg/dL AST 33 (14-36) U/L ALT 26 (4-34) U/L Alkaline Phosphatase 74 (38-126) U/L Troponin I (0.000-0.034) ng/mL Total Protein 6.4 (6.3-8.2) g/dL Albumin 3.4 L (3.5-5.0) g/dL 06/05/23 Range/Units 15:14 WBC (3.8-10.6) k/uL RBC (3.80-5.40) m/uL Hgb (11.4-16.0) gm/dL Hct (34.0-46.0) % MCV (80.0-100.0) fL MCH (25.0-35.0) pg MCHC (31.0-37.0) g/dL RDW (11.5-15.5) % Plt Count (150-450) k/uL MPV Neutrophils % % Lymphocytes % % Monocytes % % Eosinophils % % Basophils % % Neutrophils # (1.3-7.7) k/uL Lymphocytes # (1.0-4.8) k/uL Monocytes # (0-1.0) k/uL Eosinophils # (0-0.7) k/uL Basophils # (0-0.2) k/uL PT (10.0-12.5) sec INR (<1.2) APTT (22.0-30.0) sec D-Dimer (<0.60) mg/L FEU Sodium (137-145) mmol/L Potassium (3.5-5.1) mmol/L Chloride (98-107) mmol/L Carbon Dioxide (22-30) mmol/L Anion Gap mmol/L BUN (7-17) mg/dL Creatinine (0.52-1.04) mg/dL Est GFR (CKD-EPI)AfAm (>60 ml/min/1.73 sqM) Est GFR (CKD-EPI)NonAf (>60 ml/min/1.73 sqM) Glucose (74-99) mg/dL Calcium (8.4-10.2) mg/dL Magnesium (1.6-2.3) mg/dL Total Bilirubin (0.2-1.3) mg/dL AST (14-36) U/L ALT (4-34) U/L Alkaline Phosphatase (38-126) U/L Troponin I <0.012 (0.000-0.034) ng/mL Total Protein (6.3-8.2) g/dL Albumin (3.5-5.0) g/dL Disposition Clinical Impression: Pneumonia, Syncope Disposition: ADMITTED IP TO THIS [facility] Condition: Serious Is patient prescribed a controlled substance at d/c from ED?: No Referrals: Seth Oro DO [Primary Care Provider] - 1-2 days Time of Disposition: 16:23
[2023-06-05 15:49] LABS: Basophils # (A) 0.1 k/uL (0-0.2); Basophils % (A) 1 %; Eosinophils # (A) 1.1 k/uL (0-0.7); Eosinophils % (A) 7 %; HCT 44.8 % (34.0-46.0); HGB 14.9 gm/dL (11.4-16.0); Lymphocytes # (A) 1.4 k/uL (1.0-4.8); Lymphocytes % (A) 8 %; MCH 31.5 pg (25.0-35.0); MCHC 33.4 g/dL (31.0-37.0); MCV 94.3 fL (80.0-100.0); Mean Platelet Volume 8.1; Monocytes # (A) 1.1 k/uL (0-1.0); Monocytes % (A) 7 %; Neutrophils # (A) 12.9 k/uL (1.3-7.7); Neutrophils % (A) 76 %; Platelet Count 420 k/uL (150-450); RBC 4.75 m/uL (3.80-5.40); RDW 13.3 % (11.5-15.5)
[2023-06-05 15:55] LABS: ALT 26 U/L (4-34); AST 33 U/L (14-36); African American GFR (CKD) >90 (>60 ml/min/1.73 sqM); Albumin 3.4 g/dL (3.5-5.0); Alkaline Phosphatase 74 U/L (38-126); Anion Gap 8 mmol/L; Blood Urea Nitrogen 14 mg/dL (7-17); Calcium 8.6 mg/dL (8.4-10.2); Carbon Dioxide 19 mmol/L (22-30); Chloride 105 mmol/L (98-107); Glucose 140 mg/dL (74-99); Magnesium 1.7 mg/dL (1.6-2.3); Non-African American GFR(CKD) 90 (>60 ml/min/1.73 sqM); Sodium 132 mmol/L (137-145); Total Bilirubin 1.1 mg/dL (0.2-1.3); Total Protein 6.4 g/dL (6.3-8.2)
--- NOTE | 2023-06-05 15:57 | XR ---
EXAMINATION TYPE: XR chest 2V DATE OF EXAM: 06/05/2023 3:49 PM CLINICAL INDICATION:Female, 62 years old with history of syncope; [facility] COMPARISON: Chest radiographs from 06/28/2017. TECHNIQUE: XR chest 2V Frontal and lateral views of the chest. FINDINGS: Lungs/Pleura: Increased opacities near the right middle lobe which may be due to the patient's inspir atory effort. There is no evidence of pleural effusion, focal consolidation, or pneumothorax. Pulmonary vascularity: Unremarkable. Heart/mediastinum: Cardiomediastinal silhouette is unremarkable. Musculoskeletal: No acute osseous pathology. IMPRESSION: Right middle lobe increased airspace opacities correlate for pneumonia.
[2023-06-05 16:00] LABS: Potassium 4.6 mmol/L (3.5-5.1)
[2023-06-05 16:05] LABS: Prothrombin Time 10.6 sec (10.0-12.5)
[2023-06-05 16:09] LABS: Partial Thromboplastin Time 20.7 sec (22.0-30.0)
[2023-06-05] MEDS ORDERED: PNEUMONIA PROTOCOL UTILIZED 1 EACH MISC PO PRN (16:24)
[2023-06-05] MEDS: AZITHROMYCIN 500 MG in SODIUM CHLORIDE 0.9% 250 ML IVPB STA (17:31)
[2023-06-05] MEDS: SODIUM CHLORIDE 0.9% 1,000 ML IV SCH (17:36)
--- NOTE | 2023-06-05 18:05 | CA ---
Transthoracic Echo Report Name: Barbie Lenz Age: 62 Gender: F : 1960 Exam Date: 06/05/2023 17:02 Exam Location: [facility] Ht (in): 64 Wt (lb): 279 Ordering Physician: Beto Paniagua MD Attending/Referring Phys: Exhibits Manager Dinora Mercedes RDCS Procedure CPT: Indications: stroke Cardiac Hx: Technical Quality: Technically difficult study Contrast 1: Definity Total Dose (mL): 3 Contrast 2: Total Dose (mL): MEASUREMENTS (Male / Female) Normal Values 2D ECHO LV Diastolic Diameter PLAX 4.3 cm 4.2 - 5.9 / 3.9 - 5.3 cm LV Systolic Diameter PLAX 2.4 cm IVS Diastolic Thickness 1.0 cm 0.6 - 1.0 / 0.6 - 0.9 cm LVPW Diastolic Thickness 1.8 cm 0.6 - 1.0 / 0.6 - 0.9 cm LV Relative Wall Thickness 0.7 LVOT Diameter 2.2 cm Aortic Root Diameter 2.9 cm LA Systolic Diameter LX 3.0 cm 3.0 - 4.0 / 2.7 - 3.8 cm DOPPLER AV Peak Velocity 207.8 cm/s AV Peak Gradient 17.3 mmHg AV Mean Velocity 150.1 cm/s AV Mean Gradient 10.0 mmHg AV Velocity Time Integral 42.2 cm LVOT Peak Velocity 138.1 cm/s LVOT Peak Gradient 7.6 mmHg LVOT Velocity Time Integral 33.2 cm LVOT Stroke Volume 125.5 cm??? LVOT Stroke Volume Index 55.7 ml/m??? AV Area Cont Eq vti 3.0 cm??? AV Area Cont Eq pk 2.5 cm??? Mitral E Point Velocity 65.8 cm/s Mitral A Point Velocity 81.3 cm/s Mitral E to A Ratio 0.8 MV Deceleration Time 330.2 ms MV E' Velocity 10.4 cm/s Mitral E to MV E' Ratio 6.3 PV Peak Velocity 103.1 cm/s PV Peak Gradient 4.3 mmHg FINDINGS Left Ventricle Left ventricular ejection fraction is estimated at 55-60 %. Normal left ventricular systolic function with no obvious regional wall motion abnormalities. Left ventricular cavity size normal. Right Ventricle Normal right ventricular size and function. Right Atrium Normal right atrial size. Left Atrium Normal left atrial size. Mitral Valve Mild mitral regurgitation.structurally normal mitral valve. Aortic Valve Aortic valve not well visualized. Tricuspid Valve Trace tricuspid regurgitation.structurally normal tricuspid valve. Pulmonic Valve No pulmonic regurgitation.pulmonic valve not well visualized. Pericardium No pericardial effusion. Aorta Normal size aortic root. CONCLUSIONS Technically difficult study. Definity ECHO contrast used for improved visualization of the endocardial borders (inadequate visualization of two or more contiguous segments). Normal left ventricle size and systolic function Limited Doppler study with mild mitral regurgitation Previewed by: Dr. Ev Brito MD (Electronically Signed) Final Date: 05 June 2023 18:03
--- NOTE | 2023-06-05 18:29 | US ---
EXAMINATION TYPE: US carotid duplex BILAT DATE OF EXAM: 06/05/2023 COMPARISON: NONE CLINICAL INDICATION: Female, 62 years old with history of stroke; Pt states she had low blood pressur e at the doctor's and she passed out TECHNIQUE: Carotid duplex ultrasound examination. Indirect Doppler criteria was utilized. FINDINGS: EXAM MEASUREMENTS: RIGHT: Peak Systolic Velocity (PSV) cm/sec ----- Right CCA: 131.2 ----- Right ICA: 87.5 ----- Right ECA: 144.7 ICA/CCA ratio: 0.7 RIGHT: End Diastole cm/sec ----- Right CCA: 20.9 ----- Right ICA: 16.3 ----- Right ECA: 10.7 LEFT: Peak Systolic Velocity (PSV) cm/sec ----- Left CCA: 118.9 ----- Left ICA: 109.6 ----- Left ECA: 127.3 ICA/CCA ratio: 0.9 LEFT: End Diastole cm/sec ----- Left CCA: 22.0 ----- Left ICA: 13.0 ----- Left ECA: 7.1 VERTEBRALS (direction of flow): Right Vertebral: Antegrade Left Vertebral: Antegrade Rhythm: Normal [employer]INDOW SHADE CUTTER AND MOUNTER NOTES: No elevated velocities IMPRESSION: Less than 50% stenosis bilateral carotid bifurcations. Criteria for Assigning % of Stenosis / Diameter reduction (Estimation based on the indirect measurements of the internal carotid artery velocities (ICA PSV). 1. Normal (no stenosis)=ICA PSV < 125 cm/s: ratio < 2.0: ICA EDV<40 cm/s. 2. Less than 50% stenosis=ICA PSV < 125 cm/s: ratio < 2.0: ICA EDV<40 cm/s. 3. 50 to 69% stenosis=ICA PSV of 125 to 230 cm/s: ration 2.0 ? 4.0: ICA EDV 40-100 cm/s. 4. Greater than 70% stenosis to near occlusion= ICA PSV > 230 cm/s: ratio > 4.0: ICA EDV > 100 cm/s. 5. Near occlusion= ICA PSV velocities may be low or undetectable: variable ratio and ICA EDV. 6. Total occlusion=unable to detect flow.
[2023-06-05] MEDS: ATORVASTATIN 20 MG TAB PO SCH (20:12)
--- NOTE | 2023-06-05 21:04 | CT ---
EXAMINATION TYPE: CT angio chest CT DLP: 873.4 mGycm, Automated exposure control for dose reduction was used. DATE OF EXAM: 06/05/2023 6:48 PM COMPARISON: CLINICAL INDICATION:Female, 62 years old with history of dyspnea; [facility] TECHNIQUE/CONTRAST: CTA scan of the thorax is performed with IV Contrast, patient injected with 100 ml mL of Isovue 370, MIP images are created and reviewed these are created on a separate workstation.. FINDINGS: There is adequate contrast bolus and timing. PULMONARY ARTERIES: There is no evidence for a filling defect within the pulmonary vasculature to sug gest acute pulmonary embolism. Pulmonary trunk is normal in size. Trunk measures 2.4 CM. HEART: Normal heart size. No appreciable coronary calcifications. No appreciable pericardial effusio n. AORTA: Mild atherosclerotic calcifications of the aorta and branches. Ascending aorta is 3 CM, desce nding is 2.2 CM. LOWER NECK: No significant findings. MEDIASTINUM: No enlarged mediastinal or hilar nodes. SOFT TISSUES/LYMPH NODES: Unremarkable soft tissues. No axillary adenopathy. LUNGS/ PLEURA: Lungs show scattered mild scarring. No acute abnormality. No pleural effusion or pneum othorax. AIRWAY: Central airways are patent. MUSCULOSKELETAL: No acute osseous abnormality. Mild disc degeneration changes are present throughout the included thoracolumbar spine. UPPER ABDOMEN: No significant findings. Cholecystectomy clips. IMPRESSION: 1. No evidence of pulmonary embolism. 2. No other acute chest process demonstrated.
[2023-06-06] MEDS: MELATONIN 5 MG TABLET PO PRN (00:04)
--- NOTE | 2023-06-06 02:24 | HP ---
HISTORY AND PHYSICAL CHIEF COMPLAINT: Syncope, pneumonia, rash, and multiple other complaints. HISTORY OF PRESENT ILLNESS: This is a 62-year-old woman with a past medical history of hypertension, is having a rash for the last several days. The patient went to Dr. Oro and the patient apparently became lightheaded and passed out. The blood pressure is low and the patient was taken to [facility] and admitted for further evaluation and treatment. The patient was found to have right lower lobe pneumonia and as well as elevated white count. There is no history of any fever, rigors, or chills. D-dimer is also elevated. CT angio of chest was ordered to rule out the possibility of pulmonary embolism. PAST MEDICAL HISTORY: Reviewed include hypertension, hyperlipidemia. Rest of the history and rest of the chart is also noted. SOCIAL HISTORY: No history of smoking or alcohol. FAMILY HISTORY: Small-cell cancer in mother. REVIEW OF SYSTEMS: A 14-point review of systems is negative except as mentioned earlier. PHYSICAL EXAMINATION: VITAL SIGNS: Pulse is 56, blood pressure 130/70, respirations 18. HEENT: Conjunctivae normal. NECK: No JVD. CARDIOVASCULAR: S1, S2. No murmur. RESPIRATIONS: Breath sounds diminished at the bases. A few rhonchi. No crackles. ABDOMEN: Soft, nontender. LEGS: No edema. NERVOUS SYSTEM: Nonfocal. SKIN: Diffuse skin rash present. JOINTS: No active deforming arthropathy. LABORATORY DATA: WBC 17. Rest of the labs are noted. ASSESSMENT: 1. Syncope for evaluation, rule out cardiogenic shock. 2. Bradycardia. 3. Possible right lower lobe pneumonia. 4. Elevated WBC. 5. Elevated D-dimer at 9.13. Rule out acute pulmonary embolism. 6. Hyponatremia. 7. History of hypertension. 8. Skin rash. 9. Hyperlipidemia. RECOMMENDATIONS AND DISCUSSION: This is a 62-year-old woman, who presented with multiple complex medical issues, we will monitor the patient closely. I will monitor the patient's telemetry. Obtain Cardiology and Neurology consultation for the syncope workup. I would also recommend CT angio of chest to rule out the possibility of acute pulmonary embolism. Infectious Disease evaluation for possible pneumonia. Overall prognosis guarded because of multiple complex medical issues. Further recommendations to follow. Home medications will be continued once they are confirmed. See orders for further details. MMODL / IJN: [id number] /
--- NOTE | 2023-06-06 08:01 | XR ---
EXAMINATION TYPE: XR chest 1V portable DATE OF EXAM: 06/06/2023 COMPARISON: 06/05/2023 HISTORY: Pneumonia TECHNIQUE: Single frontal view of the chest is obtained. FINDINGS: Improving right lower lobe medial segment consolidation. Clear. No pleural effusion or pne umothorax. Borderline cardiomegaly. No failure. Arthropathy of the shoulders, osteopenia and degenera tive changes of the spine. IMPRESSION: Improving right lower lobe infiltrate.
[2023-06-06] MEDS: AZITHROMYCIN 500 MG TAB PO SCH (09:53)
[2023-06-06 11:11] LABS: Basophils # (A) 0.09 X 10*3/uL (0.00-0.10); Basophils % (A) 0.7 %; Eosinophils # (A) 1.14 X 10*3/uL (0.04-0.35); Eosinophils % (A) 9.3 %; HCT 38.8 % (37.2-46.3); HGB 13.2 g/dL (12.0-15.0); Lymphocytes # (A) 1.62 X 10*3/uL (0.90-5.00); Lymphocytes % (A) 13.2 %; MCH 31.4 pg (27.0-32.0); MCV 92.2 FL (80.0-97.0); Mean Platelet Volume 9.9 FL (9.5-12.2); Monocytes # (A) 0.93 X 10*3/uL (0.20-1.00); Monocytes % (A) 7.6 %; NRBC Per 100 WBC 0 X 10*3/uL (0.00-0.01); Neutrophils # (A) 8.41 X 10*3/uL (1.80-7.70); Neutrophils % (A) 68.9 %; Platelet Count 393 X 10*3/uL (140-440); RBC 4.21 X 10*6/uL (4.10-5.20); RDW 13.2 % (11.5-14.5); WBC 12.23 X 10*3/uL (4.50-10.00)
[2023-06-06 11:25] LABS: BUN/Creat Ratio 16.29 Ratio (12.00-20.00); Blood Urea Nitrogen 11.4 mg/dL (9.0-27.0); Carbon Dioxide 25.4 mmol/L (21.6-31.8); Chloride 100 mmol/L (96-109); Glucose 136 mg/dL (70-110); Potassium 3.5 mmol/L (3.5-5.5); Sodium 135 mmol/L (135-145)
[2023-06-06 11:26] LABS: Calcium 8.7 mg/dL (8.7-10.3)
[2023-06-06 12:48] VITALS: BP 140/72; PULSE 78; TEMP 97.7
--- NOTE | 2023-06-06 13:07 | P.CRDCN ---
History of Present Illness History of present illness: HISTORY OF PRESENT ILLNESS: This is a 62-year-old female with a past medical history significant for hypertension and hyperlipidemia. Patient follows in the office with Dr. Veronica. We have been asked to see the patient in consultation for syncope. Patient examined at the bedside. Patient states that she recently had a rash that was biopsied at the [employer]iph[employer] operator. She states that she was told by the ediphone operator that the rash may be caused from long-term antihypertensive medications. She went to her PCP today to discuss having her blood pressure medications changed. While she was sitting on the exam table she had a syncopal episode. She states that she woke up right away and noticed staff around her with them holding of her legs. She denies any urinary or bowel incontinence. Denies any previous episodes of syncope. She does state that she has been feeling dizzy and ligh theaded recently. She reports a decreased appetite at home. She does report a high sodium diet at home. DIAGNOSTICS: - EKG reveals sinus bradycardia with no signs of acute ischemia. - Chest xray right middle lobe increased airspace opacities correlate for pneumonia. - Laboratory data: WBC 12.23. Hemoglobin 13.2. Platelet count 393. Sodium 135. Potassium 3.5. BUN 11. Troponin negative x 1. - CTA of the chest negative for pulmonary embolism - Current home cardiac medications include irbesartan-hydrochlorothiazide 300 mg - 12.5 mg daily - Echocardiogram completed this admission reveals ejection fraction 55 to 60%, mild MR -Patient underwent Lexiscan stress test in the office in 05/2022 which was negative for ischemia REVIEW OF SYSTEMS: At the time of my exam: CONSTITUTIONAL: Denies fever or chills. HEENT: Denies blurred vision, vision changes, or eye pain. Denies hemoptysis CARDIOVASCULAR: Denies chest pain. Denies orthopnea. Denies PND. Denies palpitations RESPIRATORY: Denies shortness of breath. GASTROINTESTINAL: Denies abdominal pain. Denies nausea or vomiting. HEMATOLOGIC: Denies bleeding disorders. GENITOURINARY: Denies any blood in urine. SKIN: Denies pruitis. Denies rash. PHYSICAL EXAM: VITAL SIGNS: Reviewed. GENERAL: Well-developed in no acute distress. HEENT: Head is normocephalic. Pupils are equal, round. Sclerae anicteric. Mucous membranes of the mouth are moist. Neck supple. No JVD or thyromegaly LUNGS: Respirations even and unlabored. Lungs essentially clear to auscultation bilaterally. HEART: Regular rate and rhythm. S1 and S2 heard. 1/6 systolic murmur ABDOMEN: Soft. Nondistended. Nontender. EXTREMITIES: Normal range of motion. No clubbing or cyanosis. Peripheral pulses intact. No lower extremity edema NEUROLOGIC: Awake and alert. Oriented x 3. ASSESSMENT: Syncope Hypertension Hyperlipidemia PLAN: Patient instructed to discontinue irbesartanhydrochlorothiazide Patient instructed to obtain a blood pressure cuff and check her blood pressure 2 times a day for the next week and bring blood pressure log to her follow-up appointment with Dr. Veronica Patient educated on a low-sodium diet. Patient verbalized understanding. The patient may be discharged home today from a cardiac standpoint and follow-up in [address] Veronica Nurse practitioner note has been reviewed by physician. Signing provider agrees with the documented findings, assessment, and plan of care documented by ER PHYSICIAN as a scribe. Past Medical History Past Medical History: Hyperlipidemia, Hypertension History of Any Multi-Drug Resistant Organisms: None Reported Past Surgical History: Cholecystectomy, Tubal Ligation Past Anesthesia/Blood Transfusion Reactions: No Reported Reaction Past Psychological History: No Psychological Hx Reported Past Alcohol Use History: Rare Past Drug Use History: None Reported - Past Family History Mother Family Medical History: Cancer, Hyperlipidemia, Hypertension Additional Family Medical History / Comment(s): Mother of small cell cancer at the age of 75yrs. Pt does not know where cancer was located. Father History Unknown: Yes Medications and Allergies Home Medications Medication Instructions Recorded Confirmed Type Atorvastatin Calcium [Lipitor] 20 mg PO HS 06/28/17 06/05/23 History Niacinamide 500 mg PO BID 06/05/23 06/05/23 History Azithromycin [Zithromax] 500 mg PO DAILY #3 tab 06/06/23 Rx Chlorthalidone [Hygroton] 25 mg PO DAILY #30 tablet 06/06/23 Rx Allergies Allergy/AdvReac Type Severity Reaction Status Date / Time No Known Allergies Allergy Verified 06/05/23 16:34 Physical Exam Vitals: Vital Signs Temp Pulse Resp BP BP BP BP 06/06/23 09:58 97.0 F L 06/06/23 09:48 65 18 134/72 06/06/23 06:03 68 18 141/65 06/06/23 02:23 69 18 136/57 06/05/23 22:54 59 L 18 136/65 06/05/23 19:58 158/74 122/77 146/65 06/05/23 19:20 64 18 123/87 06/05/23 14:23 96.1 F L 56 L 18 113/70 06/05/23 14:20 96.1 F L 56 L 16 113/70 Pulse Ox 06/06/23 09:58 06/06/23 09:48 99 06/06/23 06:03 100 06/06/23 02:23 99 06/05/23 22:54 100 06/05/23 19:58 06/05/23 19:20 100 06/05/23 14:23 100 06/05/23 14:20 100 Results 06/06/23 07:26 06/06/23 07:26 Cardiac Enzymes 06/05/23 06/05/23 Range/Units 15:14 15:14 AST 33 (14-36) U/L Troponin I <0.012 (0.000-0.034) ng/mL Coagulation 06/05/23 Range/Units 15:14 PT 10.6 (10.0-12.5) sec APTT 20.7 L (22.0-30.0) sec CBC 06/05/23 06/06/23 Range/Units 15:14 07:26 WBC 17.0 H 12.23 H (3.8-10.6) k/uL RBC 4.75 4.21 (3.80-5.40) m/uL Hgb 14.9 13.2 (11.4-16.0) gm/dL Hct 44.8 38.8 (34.0-46.0) % Plt Count 420 393 (150-450) k/uL Comprehensive Metabolic Panel 06/05/23 06/06/23 Range/Units 15:14 07:26 Sodium 132 L 135 (137-145) mmol/L Potassium 4.6 3.5 (3.5-5.1) mmol/L Chloride 105 100 (98-107) mmol/L Carbon Dioxide 19 L 25.4 (22-30) mmol/L BUN 14 11.4 (7-17) mg/dL Creatinine 0.72 0.7 (0.52-1.04) mg/dL Glucose 140 H 136 H (74-99) mg/dL Calcium 8.6 8.7 (8.4-10.2) mg/dL AST 33 (14-36) U/L ALT 26 (4-34) U/L Alkaline Phosphatase 74 (38-126) U/L Total Protein 6.4 (6.3-8.2) g/dL Albumin 3.4 L (3.5-5.0) g/dL Current Medications Generic Name Dose Route Start Last Admin Trade Name Freq PRN Reason Stop Dose Admin Atorvastatin Calcium 20 mg 06/05/23 21:00 06/05/23 20:12 Atorvastatin 20 Mg Tab PO 20 mg HS FARHAN Administration Azithromycin 500 mg 06/06/23 09:00 06/06/23 09:53 Azithromycin 500 Mg Tab PO 06/07/23 09:01 500 mg DAILY FARHAN Administration Protocol Sodium Chloride 1,000 mls @ 100 mls/hr 06/05/23 16:30 06/05/23 20:17 Saline 0.9% IV 100 mls/hr .Q10H FARHAN Administration Ceftriaxone Sodium 2 gm/ 50 mls @ 100 mls/hr 06/06/23 09:00 06/06/23 09:54 Sodium Chloride IVPB 06/09/23 09:29 100 mls/hr Q24HR FARHAN Administration Protocol Melatonin 5 mg 06/05/23 19:38 06/06/23 00:04 Melatonin 5 Mg Tablet PO 5 mg HS PRN Administration Insomnia Miscellaneous Information 1 each 06/05/23 16:24 Pneumonia Protocol Utilized 1 Each Misc PO ONCE PRN Per Protocol 06/06/23 07:26 06/06/23 07:26
--- NOTE | 2023-06-06 13:41 | P.CNNES ---
History of Present Illness Consult date: 06/06/23 Requesting physician: Beto Paniagua Reason for Consult: syncope History of Present Illness: This is a 62-year-old woman who presented emergency department because of syncopal episode. Patient stated that the for the last 1 month as she has a rash and that she followed up with a data center solutions architect who felt was due to her blood pressure and medication. Yesterday she went to her PCP to address her blood pressure medication and while there she had a brief syncopal episode and she stated that the was less than a minute and she thinks it was a few seconds. She denies any tongue bite, urinary bowel incontinence or being told that she was shaking of her extremities. She denies any history of stroke. She rarely drinks alcohol. She denies any prior syncopal episodes. She states she is on Irbesartan for a while and was felt the culprit for her rash. Some of the workup during his hospital visit consisted of: Orthostatic blood pressure sitting is 158/74 and standing is 122/77. Her orthostatic blood pressure is positive Serum glucose is 140, calcium is 8.6, magnesium is 1.7. Carotid duplex is less than 50% stenosis bilateral carotid bifurcation 2-D echo was reported as technically difficult study. Normal left ventricle size and systolic function. Review of Systems Review of system: The 12 point system was reviewed and apparent positive and negative per HPI. Past Medical History Past Medical History: Hyperlipidemia, Hypertension History of Any Multi-Drug Resistant Organisms: None Reported Past Surgical History: Cholecystectomy, Tubal Ligation Past Anesthesia/Blood Transfusion Reactions: No Reported Reaction Past Psychological History: No Psychological Hx Reported Past Alcohol Use History: Rare Past Drug Use History: None Reported - Past Family History Mother Family Medical History: Cancer, Hyperlipidemia, Hypertension Additional Family Medical History / Comment(s): Mother of small cell cancer at the age of 75yrs. Pt does not know where cancer was located. Father History Unknown: Yes Medications and Allergies Home Medications Medication Instructions Recorded Confirmed Type Atorvastatin Calcium [Lipitor] 20 mg PO HS 06/28/17 06/05/23 History Niacinamide 500 mg PO BID 06/05/23 06/05/23 History Azithromycin [Zithromax] 500 mg PO DAILY #3 tab 06/06/23 Rx Chlorthalidone [Hygroton] 25 mg PO DAILY #30 tablet 06/06/23 Rx Allergies Allergy/AdvReac Type Severity Reaction Status Date / Time No Known Allergies Allergy Verified 06/05/23 16:34 Physical Examination - Vital Signs Vital Signs: Vital Signs Temp Pulse Resp BP BP BP BP 06/06/23 12:12 97.7 F 78 18 140/72 06/06/23 09:58 97.0 F L 06/06/23 09:48 65 18 134/72 06/06/23 06:03 68 18 141/65 06/06/23 02:23 69 18 136/57 06/05/23 22:54 59 L 18 136/65 06/05/23 19:58 158/74 122/77 146/65 06/05/23 19:20 64 18 123/87 06/05/23 14:23 96.1 F L 56 L 18 113/70 06/05/23 14:20 96.1 F L 56 L 16 113/70 Pulse Ox 06/06/23 12:12 99 06/06/23 09:58 06/06/23 09:48 99 06/06/23 06:03 100 06/06/23 02:23 99 06/05/23 22:54 100 06/05/23 19:58 06/05/23 19:20 100 06/05/23 14:23 100 06/05/23 14:20 100 GENERAL: The patient is lying in bed and is not in acute distress. INTEGUMENTARY: Has erythematous macular rash in extremities. NEUROLOGICAL: Higher mental function: The patient is awake, alert, oriented to self, place and time. Patient is following commands. No aphasia and no neglect. Cranial nerves: The pupils are round, equal and reactive to light and accommodation. Visual robles are full to confrontation throughout. Extraocular movement is intact no nystagmus is noted. Facial sensation is normal to touch throughout. The facial strength is normal throughout. Hearing is normal bilaterally to hand rub. Tongue is midline and moved [id number] without any difficulty. No dysarthria is noted. Shoulder shrug is normal bilaterally. Motor: Gait is normal. The strength is 5 over 5 throughout. Normal tone and bulk. Cerebellum: Normal finger to nose heel to jenkins bilaterally. Sensation: Sensation is normal to touch throughout. Reflexes (right/left): 2+ throughout. Plantars are downgoing bilaterally. Results - Laboratory Findings CBC and BMP: 06/06/23 07:26 06/06/23 07:26 Abnormal Lab Findings: Abnormal Labs 06/05/23 06/05/23 06/05/23 15:14 15:14 15:14 WBC 17.0 H Neutrophils # 12.9 H Monocytes # 1.1 H Eosinophils # 1.1 H APTT 20.7 L D-Dimer 9.13 H Sodium 132 L Carbon Dioxide 19 L Glucose 140 H Albumin 3.4 L 06/06/23 06/06/23 07:26 07:26 WBC 12.23 H Neutrophils # 8.41 H Monocytes # Eosinophils # 1.14 H APTT D-Dimer Sodium Carbon Dioxide Glucose 136 H Albumin Assessment and Plan Assessment: This is a 62-year-old woman who has been having a rash for the last 1 month and was felt due to Irbesartan and went to see her PCP and had a brief syncopal episode. Denies any history of seizures or passing out prior to this. He orthostatic was positive. Syncopal episode the is felt due to positive orthostatic and unsure if due to medication use Rash and it felt due to likely medication induced Underlying history of hypertension Plan: I ordered a CT of the head I ordered a routine EEG. If the patient is unable to obtain an EEG as an inpatient can obtain as an outpatient I notified the patient that because of the syncopal episode per the [place] law, to avoid right driving for 6 month until no further episodes, avoid heights, avoids swimming unassisted or using heavy machinery. She can follow-up with someone as outpatient to address this restriction if felt does not apply to her. We'll defer the rest of the medical management to primary and other specialists Recommend the patient follow up with a neurologist as an outpatient within the 2 weeks Thank you for the consultation. Time with Patient: Greater than 30
--- NOTE | 2023-06-06 18:46 | P.HPIM ---
History of Present Illness H&P Date: 06/06/23 Chief Complaint: Passed out This is a pleasant 62-year-old patient, follows with Dr. Oro. Chronic stable medical conditions include hyperlipidemia, claustrophobia, skin rash. For the latter she has done about [address] Holbrook. She has been told that she has possibly bullous pemphigoid. And is probably secondary to Irbesartan. She went to see Dr. Oro yesterday around 1 PM. She normally does not eat breakfast but eats around 11:00. Had not eaten yesterday. While she was in the office there patient passed out. Her blood pressure noticed first about 70-90 systolic. No chest pain no palpitation. No focal symptoms. No seizure activity. No tongue biting or incontinence. This morning patient is feeling well. Her fianc at the bedside no blood pressure medications were received this morning. Review of systems: GEN.: None EYES: None HEENT: None NECK: None RESPIRATORY: None CARDIOVASCULAR: None GASTROINTESTINAL: None GENITOURINARY: None MUSCULOSKELETAL: Some joint pain LYMPHATICS: None HEMATOLOGICAL: None PSYCHIATRY: None NEUROLOGICAL: As above Social history: Has a fianc. Retired from [email or web address]. Does work couple of days a week at [employer]. No smoking. Alcohol rarely. Physical examination: VITAL SIGNS: 96.1, 56, 16, 113/70, 100% room air upon presentation GENERAL: BMI 47.9, reclining bed awake comfortable. EYES: Pupils equal. Conjunctiva miguelangel l. HEENT: External appearance of nose and ears normal, oral cavity grossly normal. NECK: JVD not raised; masses not palpable. HEART: First and second heart sounds are normal; no edema. LUNGS: Respiratory rate normal; clear to auscultation. ABDOMEN: Soft, nontender, liver spleen not palpable, no masses palpable. PSYCH: Alert and oriented x3; mood and affect miguelangel l. MUSCULOSKELETAL:No Clubbing/cyanosis;muscles-grossly intact -DERMATOLOGICAL: Some discoloration of skin has scattered areas NEUROLOGICAL: Cranial nerves grossly intact; no facial asymmetry, power and sensation grossly intact. LYMPHATICS: No lymph nodes palpable in the axilla and neck INVESTIGATIONS, reviewed in the clinical context: June 05: White count 12.2 hemoglobin 13.2 platelets 393 potassium 3.5 creatinine 0.7 June 04: White count 17 EKG tracing personally reviewed by me-sinus bradycardia. Rate 55 Chest x-ray film personally reviewed by me-possible right basilar infiltrate 2D echocardiogram: EF 55 to 60%. Chest CTA: Negative for PE Assessment plan: -Syncope. From hypotension. Patient was noted to have a blood pressure to 70-90 systolic at the PCPs office. irbesartan, has been held Patient does not have any focal features. No cardio or neurological symptoms. Cardiology neurology was consulted for any further intervention. -Essential hypertension Stop [email or web address]'martinez for now. Start chlorthalidone 25 mg a day -Morbid obesity BMI 47.9. Weight loss measures were discussed -Bullous pemphigoid possibly secondary to irbesartan. Patient is following with Dr. Davalos of his office -Hyperlipidemia Lipitor, niacin -Full code Consultation made to cardiology neurology. Discussed with patient. Past Medical History Past Medical History: Hyperlipidemia, Hypertension History of Any Multi-Drug Resistant Organisms: None Reported Past Surgical History: Cholecystectomy, Tubal Ligation Past Anesthesia/Blood Transfusion Reactions: No Reported Reaction Past Psychological History: No Psychological Hx Reported Past Alcohol Use History: Rare Past Drug Use History: None Reported - Past Family History Mother Family Medical History: Cancer, Hyperlipidemia, Hypertension Additional Family Medical History / Comment(s): Mother of small cell cancer at the age of 75yrs. Pt does not know where cancer was located. Father History Unknown: Yes Medications and Allergies Home Medications Medication Instructions Recorded Confirmed Type Atorvastatin Calcium [Lipitor] 20 mg PO HS 06/28/17 06/05/23 History Niacinamide 500 mg PO BID 06/05/23 06/05/23 History Azithromycin [Zithromax] 500 mg PO DAILY #3 tab 06/06/23 Rx Chlorthalidone [Hygroton] 25 mg PO DAILY #30 tablet 06/06/23 Rx Allergies Allergy/AdvReac Type Severity Reaction Status Date / Time No Known Allergies Allergy Verified 06/05/23 16:34 Physical Exam Vitals: Vital Signs Temp Pulse Resp BP BP BP BP 06/06/23 12:12 97.7 F 78 18 140/72 06/06/23 09:58 97.0 F L 06/06/23 09:48 65 18 134/72 06/06/23 06:03 68 18 141/65 06/06/23 02:23 69 18 136/57 06/05/23 22:54 59 L 18 136/65 06/05/23 19:58 158/74 122/77 146/65 06/05/23 19:20 64 18 123/87 Pulse Ox 06/06/23 12:12 99 06/06/23 09:58 06/06/23 09:48 99 06/06/23 06:03 100 06/06/23 02:23 99 06/05/23 22:54 100 06/05/23 19:58 06/05/23 19:20 100 Results CBC & Chem 7: 06/06/23 07:26 06/06/23 07:26 Labs: Abnormal Lab Results - Last 24 Hours (Table) 06/06/23 06/06/23 Range/Units 07:26 07:26 WBC 12.23 H (4.50-10.00) X 10*3/uL Neutrophils # 8.41 H (1.80-7.70) X 10*3/uL Eosinophils # 1.14 H (0.04-0.35) X 10*3/uL Glucose 136 H (70-110) mg/dL
--- NOTE | 2023-06-06 18:47 | P.DS ---
Providers Date of admission: 06/05/23 16:25 Expected date of discharge: 06/06/23 Attending physician: Jordan Rayo Consults: 06/05/23 16:24 Consult Physician Routine Consulting Provider: Ev Brito Consult Reason/Comments: syncope Do you want consulting provider notified?: Yes 06/05/23 16:25 Consult Physician Routine Consulting Provider: Satya Sandoval Consult Reason/Comments: syncope Do you want consulting provider notified?: Yes Consult Physician Routine Consulting Provider: Stiven Mireles Consult Reason/Comments: syncope Do you want consulting provider notified?: Yes Consult Physician Routine Consulting Provider: Gordo Lugo Consult Reason/Comments: pneumonia? Do you want consulting provider notified?: Yes [facility]: Chief Complaint: Passed out This is a pleasant 62-year-old patient, follows with Dr. Oro. Chronic stable medical conditions include hyperlipidemia, claustrophobia, skin rash. For the latter she has done about [address] Holbrook. She has been told that she has possibly bullous pemphigoid. And is probably secondary to Irbesartan. She went to see Dr. Oro yesterday around 1 PM. She normally does not eat breakfast but eats around 11:00. Had not eaten yesterday. While she was in the office there patient passed out. Her blood pressure noticed first about 70-90 systolic. No chest pain no palpitation. No focal symptoms. No seizure activity. No tongue biting or incontinence. This morning patient is feeling well. Her fianc at the bedside no blood pressure medications were received this morning. Patient seen by cardiology and neurology. Syncope felt to be free from hypotension. Home blood pressure medication discontinued. Patient be Started on chlorthalidone. Told to start a blood pressure reading every morning. Questions answered. Social history: Has a fianc. Retired from [employer]. Does work couple of days a week at [employer]. No smoking. Alcohol rarely. Physical examination: VITAL SIGNS: 96.1, 56, 16, 113/70, 100% room air upon presentation GENERAL: BMI 47.9, reclining bed awake comfortable. EYES: Pupils equal. Conjunctiva miguelangel l. HEENT: External appearance of nose and ears normal, oral cavity grossly normal. NECK: JVD not raised; masses not palpable. HEART: First and second heart sounds are normal; no edema. LUNGS: Respiratory rate normal; clear to auscultation. ABDOMEN: Soft, nontender, liver spleen not palpable, no masses palpable. PSYCH: Alert and oriented x3; mood and affect miguelangel l. MUSCULOSKELETAL:No Clubbing/cyanosis;muscles-grossly intact -DERMATOLOGICAL: Some discoloration of skin has scattered areas NEUROLOGICAL: Cranial nerves grossly intact; no facial asymmetry, power and sensation grossly intact. LYMPHATICS: No lymph nodes palpable in the axilla and neck INVESTIGATIONS, reviewed in the clinical context: June 05: White count 12.2 hemoglobin 13.2 platelets 393 potassium 3.5 creatinine 0.7 June 04: White count 17 EKG tracing personally reviewed by me-sinus bradycardia. Rate 55 Chest x-ray film personally reviewed by me-possible right basilar infiltrate 2D echocardiogram: EF 55 to 60%. Chest CTA: Negative for PE Assessment plan: -Syncope. From hypotension. Patient was noted to have a blood pressure to 70-90 systolic at the PCPs office. irbesartan, has been held Patient does not have any focal features. No cardio or neurological symptoms. Seen by Dr. Sandoval from neurology and Dr. Sawyer from cardiology -Essential hypertension Stop irbesart'martinez . Start chlorthalidone 25 mg a day -Morbid obesity BMI 47.9. Weight loss measures were discussed -Bullous pemphigoid possibly secondary to irbesartan. Patient is following with Dr. Davalos of his office -Hyperlipidemia Lipitor, niacin -Full code Disposition: Home Plan - Discharge Summary New Discharge Prescriptions: New Azithromycin [Zithromax] 500 mg PO DAILY #3 tab Chlorthalidone [Hygroton] 25 mg PO DAILY #30 tablet Continue Atorvastatin Calcium [Lipitor] 20 mg PO HS Niacinamide 500 mg PO BID Discontinued Irbesartan/Hydrochlorothiazide [Irbesartan-Hctz 300-12.5 mg Tb] 1 tab PO DAILY Doxycycline Monohydrate 100 mg PO BID Discharge Medication List Atorvastatin Calcium [Lipitor] 20 mg PO HS 06/28/17 [History] Niacinamide 500 mg PO BID 06/05/23 [History] Azithromycin [Zithromax] 500 mg PO DAILY #3 tab 06/06/23 [Rx] Chlorthalidone [Hygroton] 25 mg PO DAILY #30 tablet 03/27/24 [Rx] Follow up Appointment(s)/Referral(s): Seth Oro DO [Primary Care Provider] - 1-2 days Javier Veronica MD [STAFF PHYSICIAN] - 1 Week Discharge Disposition: HOME SELF-CARE
--- NOTE | 2023-06-07 15:56 | CT ---
EXAMINATION TYPE: CT brain wo con CT DLP: 1079.5 mGycm, Automated exposure control for dose reduction was used. DATE OF EXAM: 06/06/2023 10:21 AM COMPARISON: None. CLINICAL INDICATION:Female, 62 years old with history of syncope, Syncope TECHNIQUE: Brain: Axial CT images of the brain were obtained with coronal and sagittal reformats created and rev iewed. Contrast used: None. Oral contrast used: None. FINDINGS: Brain: Extra-axial spaces: No abnormal extra-axial fluid collections. Ventricular system: Within normal limits Cerebral parenchyma: No acute intraparenchymal hemorrhage or mass effect. The guo-white junction is well differentiated. Cerebellum: Unremarkable. Mass effect: No evidence of midline shift. Intracranial vasculature: Atherosclerotic calcifications of the intracranial vessels. Soft tissues: Normal. Calvarium/osseous structures: No depressed skull fracture. Paranasal sinuses and mastoid air cells: Mild scattered paranasal sinus disease. Visualized orbits: Orbital contents are intact. IMPRESSION: No acute intracranial process.
== END 2023-06-06 12:45 | disposition home or self-care (01) ==
LOC: EC 14:07 → 6NMEDSUR 16:25
PROVIDERS: ADMIT Hospitalist; ATTEND Hospitalist
DX: R55 Syncope and collapse (principal); I95.9 Hypotension, unspecified; I10 Essential (primary) hypertension; E78.5 Hyperlipidemia, unspecified; R00.1 Bradycardia, unspecified; D72.829 Elevated white blood cell count, unspecified; E87.1 Hypo-osmolality and hyponatremia; R21 Rash and other nonspecific skin eruption
CPT/HCPCS: 96361 ×2; 96365; 96366; 96367; 99285; 36415; 93005; 93306; 85379; 80053; 80048; 87449; 83735; 84484; 85025 ×2; 85610; 85730; 87040; 71045; 71046; 93880; 70450; 71275; G0378 ×2; J0456; J0696 ×2; Q9957; Q9967